=== PATIENT | male | born 1985 | race Caucasian/White ===

== ENCOUNTER 2016-11-14 21:58 | Emergency (ER) | payer OTHER ==
[~2016-11-14] VITALS: Ht 177.8 cm; Wt 90.7 kg
[~2016-11-14 21:58] MED LIST: ACET500T33 PO; CLIN-44 PO; DOCU-27 PO; FLUC100T7 PO; HYDR-963 PO; HYDR-971 PO; HYDR15CR20 TP; IBUP-1007 PO; LEVO750T31 PO; METO25TA4 PO; ONDA4TAB10 SL; ONDA4TAB7 PO; OXYC-244 PO; OXYC-250 PO; OXYC10TA32 PO; OXYC1TAB7 PO; PANT40TA5 PO; TRAZ100T12 PO
[2016-11-14] MEDS ORDERED: KETOROLAC TROMETHAMINE 30 MG/ML INJ. IV ONE (23:15)
[2016-11-14 23:22] LABS: BASO % 1 % (0-3); EOS % 1 % (0-3); HEMATOCRIT 40.9 % (39.0-53.0); HEMOGLOBIN 14.1 g/dL (13.0-17.5); LYMPH # 1.7 x10^3/uL (1.0-4.8); LYMPH % 16 % (24-48); MEAN CORPUSCULAR HEMOGLOBIN 30 pg (25-35); MEAN CORPUSCULAR HGB CONC 34 g/dL (31-37); MEAN CORPUSCULAR VOLUME 86 fL (79-100); MONO % 11 % (0-9); NEUT % 71 % (31-73); PLATELET COUNT 238 x10^3/uL (140-400); RED BLOOD COUNT 4.75 x10^6/uL (4.30-5.70); RED CELL DISTRIBUTION WIDTH 13.6 % (11.5-14.5); WHITE BLOOD COUNT 10.3 x10^3/uL (4.0-11.0)
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
[2016-11-14 23:32] LABS: CALCIUM 8.8 mg/dL (8.5-10.1); CREATININE 1.1 mg/dL (0.7-1.3); GFR 77.1; POTASSIUM 3.4 mmol/L (3.5-5.1)
[2016-11-14 23:38] LABS: ALBUMIN 3.7 g/dL (3.4-5.0); DIRECT BILIRUBIN 0.2 mg/dL (0.0-0.2); TOTAL BILIRUBIN 0.4 mg/dL (0.2-1.0); TOTAL PROTEIN 7.4 g/dL (6.4-8.2)
[2016-11-14] MEDS ORDERED: CONTRAST GIVEN MC PRN (23:55)
[2016-11-14] MEDS ORDERED: IOHEXOL 300 MG/ML 75 ML VIAL IV ONE (23:55)
[2016-11-15] VITALS: BP 105/51
--- NOTE | 2016-11-15 00:51 | RAD ---
PROCEDURE CT chest with contrast. HISTORY Chest pain x1 week. Shortness of air. Right shoulder pain. History of Hodgkin's lymphoma. TECHNIQUE Helical CT imaging of the chest is performed after 75 cc Omnipaque 300 IV contrast. PQRS: One or more the following individualized dose reduction techniques were utilized for the study: 1. Automated exposure control. 2. Adjustment of the mA and/or kV according to patient size. 3. Use of iterative reconstruction technique. COMPARISON CT chest abdomen and pelvis with contrast, May 07, 2016. FINDINGS There is right chest Port-A-Cath. There are median sternotomy wires. There are mediastinal surgical clips. Cardiac size is normal, no pericardial effusion. There is soft tissue density in the anterior mediastinum measuring 2.9 x 3.5 cm previously 2.7 x 3.2 cm. Subcentimeter prevascular lymph nodes are stable. No hilar adenopathy. Great vessels normal caliber. The central airways are patent. Respiratory motion artifact. Bilateral lower lobe dependent atelectasis. No consolidation is seen. No pleural abnormality. Spleen size is normal. Heterogeneous material distends the stomach. Gallbladder is contracted. No acute bone abnormality. IMPRESSION 1. Bilateral lower lobe dependent atelectasis. 2. Soft tissue density in the anterior mediastinum is slightly larger than on the prior study. Postsurgical changes of the mediastinum are stable. Electronically signed by: Eugene Jackson MD (November 15, 2016 00:49:39)
--- NOTE | 2016-11-15 06:52 | EKG ---
[facility] [address] [place] [address] Test Date: 2016-11-14 Test Time: 22:14:03 Pat Name: CHERI MANRIQUEZ Department: Room: Gender: M [employer]ulic [employer] Operator: : [id number] Requested By: JULIAN CHANDRA Order Number: [id number] Reading MD: Gabriel Dooley Measurements Intervals [place] Rate: 90 P: 53 WI: 136 QRS: 55 QRSD: 84 T: 42 QT: 360 QTc: 444 Interpretive Statements SINUS RHYTHM NON-SPECIFIC ST/T CHANGES Electronically Signed On 11-22-2016 8:52:58 CDT by Gabriel Dooley
== END 2016-11-15 01:07 | disposition home or self-care (01) ==
LOC: ER 22:30
DX: C81.92 Hodgkin lymphoma, unspecified, intrathoracic lymph nodes (principal); M25.511 Pain in right shoulder; F12.10 Cannabis abuse, uncomplicated; Z95.1 Presence of aortocoronary bypass graft
CPT/HCPCS: 36415; 71260; 80048; 80076; 85027; 93005; 96374; 99285; J1885; Q9967

== ENCOUNTER 2017-02-22 01:13 | Emergency (ER) | payer OTHER ==
[~2017-02-22] VITALS: Ht 180.3 cm; Wt 92.5 kg
[~2017-02-22 01:13] MED LIST changes: -CLIN-44 PO; +CLIN150C14 PO; +DOCU-109 PO; -DOCU-27 PO; -OXYC-244 PO; -OXYC-250 PO; +OXYC-327 PO; +OXYC-328 PO; -OXYC10TA32 PO; +OXYC10TA45 PO
[2017-02-22 01:32] VITALS: BP 124/63
[2017-02-22] MEDS ORDERED: IV NORMAL SALINE 1000ML BAG 1,000 ML IV SCH (01:34)
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
[2017-02-22] MEDS ORDERED: ONDANSETRON PF 4 MG/2 ML VIAL. IV ONE (01:45)
[2017-02-22] MEDS ORDERED: HYDROmorphone 2 MG/ML VIAL IV ONE (01:45)
[2017-02-22 01:46] LABS: BASO # 0.1 x10^3/uL (0.0-0.2); BASO % 1 % (0-3); EOS % 1 % (0-3); HEMATOCRIT 37.5 % (39.0-53.0); HEMOGLOBIN 13.1 g/dL (13.0-17.5); LYMPH # 1.5 x10^3/uL (1.0-4.8); LYMPH % 18 % (24-48); MEAN CORPUSCULAR HEMOGLOBIN 30 pg (25-35); MEAN CORPUSCULAR HGB CONC 35 g/dL (31-37); MEAN CORPUSCULAR VOLUME 86 fL (79-100); MONO % 14 % (0-9); NEUT % 66 % (31-73); PLATELET COUNT 242 x10^3/uL (140-400); RED BLOOD COUNT 4.34 x10^6/uL (4.30-5.70); RED CELL DISTRIBUTION WIDTH 13.1 % (11.5-14.5); WHITE BLOOD COUNT 8.4 x10^3/uL (4.0-11.0)
[2017-02-22] MEDS ORDERED: ZIPRASIDONE IM 20 MG VIAL. IM ONE (02:15)
[2017-02-22 02:16] LABS: CALCIUM 9.2 mg/dL (8.5-10.1); CREATININE 0.9 mg/dL (0.7-1.3); GFR 97.2; POTASSIUM 4.1 mmol/L (3.5-5.1)
[2017-02-22 02:21] LABS: ALBUMIN 3.4 g/dL (3.4-5.0); ALBUMIN/GLOBULIN RATIO 0.9 (1.0-1.7); DIRECT BILIRUBIN 0.1 mg/dL (0.0-0.2); TOTAL BILIRUBIN 0.5 mg/dL (0.2-1.0)
[2017-02-22] MEDS ORDERED: KETOROLAC TROMETHAMINE 30 MG/ML INJ. IV ONE (03:30)
[2017-02-22] MEDS ORDERED: ONDA4TAB10 PO (03:35)
[2017-02-22] MEDS ORDERED: DICY10CA53 PO (03:35)
[2017-02-22] MEDS ORDERED: FAMO40TA57 PO (03:35)
--- NOTE | 2017-02-22 07:12 | RAD ---
Portable chest, 02/22/2017: History: Epigastric pain Comparison is made to a study from 05/13/2016. A right Port-A-Cath remains in place extending into the inferior aspect of the superior vena cava. There has been a previous median sternotomy. The heart size and pulmonary vascularity are normal. The lungs are clear. There is no evidence of pleural fluid. IMPRESSION: No acute cardiopulmonary abnormality is detected.
== END 2017-02-22 04:14 | disposition home or self-care (01) ==
LOC: ER 01:13
DX: R10.84 Generalized abdominal pain (principal); F17.210 Nicotine dependence, cigarettes, uncomplicated
CPT/HCPCS: 36415; 71010; 80053; 80076; 83690; 85025; 96361; 96372; 96374; 96375; 99285; J1170; J2405; J3486; J7030